=== PATIENT | female | born 1995 | race Caucasian/White ===

== ENCOUNTER 2021-06-30 14:20 | Emergency (ER) | payer BC ==
[~2021-06-30] VITALS: Ht 167.6 cm; Wt 59.0 kg
[2021-06-30] MEDS ORDERED: DOXYCYCLINE100 MG PO (15:03)
[2021-06-30] MEDS ORDERED: HYDROCO/APAP1 TA9 PO (15:03)
[2021-06-30 15:40] VITALS: BP 134/81
== END 2021-06-30 15:44 | disposition home or self-care (01) | DRG 605 ==
LOC: ED 14:20
PROC: 0HQNXZZ Repair Left Foot Skin, External Approach (ICD-10-PCS; principal; 2021-06-30)
DX: S91.312A Laceration without foreign body, left foot, initial encounter (principal); W26.0XXA Contact with knife, initial encounter; Y93.89 Activity, other specified; Y92.009 Unspecified place in unspecified non-institutional (private) residence as the place of occurrence of the external cause